=== PATIENT | female | born 1970 | race Caucasian/White ===

== ENCOUNTER 2017-10-05 21:00 | Inpatient (IN) ==
[2017-10-05] MEDS ORDERED: Morphine Inj 4 MG/ML Vial IV.PUSH ONE (21:27)
[2017-10-05] MEDS ORDERED: Sodium Chlor 0.9% Inj 500 ML IV.SIG ONE (21:28)
[2017-10-05] MEDS ORDERED: Pantoprazole Inj 40 MG Vial IV.PUSH ONE (21:29)
--- NOTE | 2017-10-05 21:36 | ED ---
HPI General Chief Complaint: Chest Pain Stated Complaint: chest pain Time Seen by Provider: 10/05/17 21:19 History of Present Illness HPI narrative: 47-year-old female presents to the emergency department by private transportation for complaint of severe epigastric pain radiating to her back since 12 noon. Patient states she has had some mild cold symptoms and had a prescription for steroid and doxycycline called in by her primary care provider and took her first dose this morning. Patient reports noting onset of pain after taking the medication. Patient states that she also has been flying frequently for her work over the past 1 month. Patient reports prior history of breast cancer 3 years ago but is not currently being managed for active breast cancer. Patient denies any upper extremity or lower extremity pain or swelling. Patient also notes pleuritic chest pain but does note shortness of breath. Patient denies fever or chills. Patient reports epigastric pain that is severe 10/10 in intensity and unremitting unable to identify exacerbating or alleviating factors. Patient's had nausea without vomiting. Patient denies flank pain. Patient denies referred neck jaw mid scapular back pain shoulder or arm pain. Patient denies dysuria frequency urgency or hematuria. Patient denies any recent protracted bed rest or surgeries. Pain is severe, constant and unremitting and she is unable to identify exacerbating or alleviating factors. Complete Quality Measures for STEMI Alert Patients Related Data On Oral Contraceptives: No Home Medications Medication Instructions Recorded Confirmed escitalopram oxalate [Lexapro] 10 mg PO DAILY 10/05/17 10/05/17 spironolactone 25 mg PO DAILY 10/05/17 10/05/17 Allergies Allergy/AdvReac Type Severity Reaction Status Date / Time codeine Allergy Hallucinati Verified 10/05/17 21:12 ons Sulfa (Sulfonamide Allergy Vomiting Verified 10/05/17 21:12 Antibiotics) Review of Systems Except as stated in HPI: all other systems reviewed are negative PMFSH History History Provided By: Patient Medical History Medical History Hx of hysterectomy (Acute) Breast cancer (Acute) Surgical History Surgical History History of mastectomy (Acute) Social History Social History Substance History: No History of Abuse Second Hand Smoke Exposure: No Smoking Status: Never smoker How Often Do You Have a Drink Containing Alcohol: Never Recent Travel in [place] within the Last 8 Weeks: No Recent Out of Country Travel within the Last 8 Weeks: No Exam Narrative Exam Narrative: GENERAL: Well-nourished, well-developed patient. In obvious discomfort and no respiratory distress SKIN: Focused skin assessment warm/dry. HEAD: Normocephalic. EYES: No scleral icterus. No injection or drainage. NECK: Supple, trachea midline. No JVD or lymphadenopathy. CARDIOVASCULAR: Regular rate and rhythm without murmurs, gallops, or rubs. RESPIRATORY: Breath sounds equal bilaterally. No accessory muscle use. GASTROINTESTINAL: Abdomen soft, reproducible epigastric tenderness without guarding or rebound, nondistended. MUSCULOSKELETAL: No cyanosis, or edema. BACK: Nontender without obvious deformity. No CVA tenderness. 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 Patient placed on cardiac exercise specialist with continuous pulse oximetry IV access obtained specimens collected and sent for resulting patient administered IV fluid bolus as well as pain medication and antiemetic. CT abdomen and pelvis along with CTA ordered Patient with symptom relief after pain medication and antiemetic EKG sinus rhythm no acute injury pattern change noted CBC is automated differential values grossly within normal limits except for left shift 80% neutrophils by automated differential, coagulation studies in normal range, metabolic panel grossly within normal limits Troponin I is less than 0.02, elevated however d-dimer is elevated 0.98 Urinalysis unremarkable with rare bacteria culture not indicated CT pulmonary angiogram is negative for PE however CT abdomen and pelvis is positive for inflammatory changes about the pancreas consistent with pancreatitis and lipase is resulted at 30,350. Patient will be admitted for acute pancreatitis Patient informed of lab results and is agreeable with admission; call placed to medicine service for admission Differential Diagnosis Differential Diagnosis: Pleurisy, PE, gastritis, peptic ulcer disease, pancreatitis, biliary colic, ACS, dissection; unlikely Boerhaave's or Joy- Seaman tear Medical Records none Lab Data Lab results reviewed: Yes I reviewed the patient's lab results. Result diagrams: 10/07/17 06:01 10/07/17 06:01 Lab Results 10/05/17 10/05/17 10/05/17 Range/Units 21:26 21:35 21:35 WBC 9.3 (4.0-11.0) th/mm3 RBC 4.90 (4.00-5.30) mil/mm3 Hgb 15.0 (11.6-15.3) gm/dL Hct 43.8 (35.0-46.0) % MCV 89.4 (80.0-100.0) fL MCH 30.6 (27.0-34.0) pg MCHC 34.2 (32.0-36.0) % RDW 12.7 (11.6-17.2) % Plt Count 208 (150-450) th/mm3 MPV 9.2 (7.0-11.0) fL Neut % (Auto) 88.2 H (16.0-70.0) % Lymph % (Auto) 6.1 L (9.0-44.0) % [place] % (Auto) 5.1 (0.0-8.0) % Eos % (Auto) 0.1 (0.0-4.0) % Baso % (Auto) 0.5 (0.0-2.0) % Neut # (Auto) 8.3 H (1.8-7.7) th/mm3 Lymph # (Auto) 0.6 L (1.0-4.8) th/mm3 [place] # (Auto) 0.5 (0.0-0.9) th/mm3 Eos # (Auto) 0.0 (0.0-0.4) th/mm3 Baso # (Auto) 0.0 (0.0-0.2) th/mm3 WBC Differential . Differential Comment Auto diff final PT 10.0 (9.8-11.6) sec INR 1.0 Ratio APTT 24.7 (24.3-30.1) sec D-Dimer Quant (PE/DVT) (0.00-0.50) mg/L FEU Sodium 138 (136-145) meq/L Potassium 3.9 (3.5-5.1) meq/L Chloride 106 (98-107) meq/L Carbon Dioxide 23.3 (21.0-32.0) meq/L Anion Gap 9 (5-15) meq/L BUN 11 (7-18) mg/dL Creatinine 0.90 (0.50-1.00) mg/dL Estimated GFR 67 L (>89) mL/min Random Glucose 175 H (74-106) mg/dL Calcium 9.4 (8.5-10.1) mg/dL Magnesium 2.4 (1.5-2.5) mg/dL Total Bilirubin 0.4 (0.2-1.0) mg/dL AST 19 (15-37) U/L ALT 18 (10-53) U/L Alkaline Phosphatase 68 (45-117) U/L Total Creatine Kinase 29 (26-192) U/L Troponin I Less than 0.02 L (0.02-0.05) ng/mL Total Protein 7.8 (6.4-8.2) g/dL Albumin 3.9 (3.4-5.0) g/dL Lipase (73-393) U/L Urine Color (Yellw/Straw) Urine Clarity (Clear) Urine pH (5.0-8.5) Ur Specific [place] (1.002-1.035) Urine Protein (Neg-Trace) mg/dL Urine Glucose (UA) (Negative) mg/dL Urine Ketones (Negative) mg/dL Urine Occult Blood (Negative) Urine Nitrate (Negative) Urine Bilirubin (Negative) Urine Urobilinogen (Less than 2) mg/dL Ur Leukocyte Esterase (Negative) Urine WBC (0-5) /hpf Ur Squamous Epith Cells (0-5) /hpf Urine Bacteria (None) /hpf 10/05/17 10/05/17 10/05/17 Range/Units 21:35 21:35 22:45 WBC (4.0-11.0) th/mm3 RBC (4.00-5.30) mil/mm3 Hgb (11.6-15.3) gm/dL Hct (35.0-46.0) % MCV (80.0-100.0) fL MCH (27.0-34.0) pg MCHC (32.0-36.0) % RDW (11.6-17.2) % Plt Count (150-450) th/mm3 MPV (7.0-11.0) fL Neut % (Auto) (16.0-70.0) % Lymph % (Auto) (9.0-44.0) % [place] % (Auto) (0.0-8.0) % Eos % (Auto) (0.0-4.0) % Baso % (Auto) (0.0-2.0) % Neut # (Auto) (1.8-7.7) th/mm3 Lymph # (Auto) (1.0-4.8) th/mm3 [place] # (Auto) (0.0-0.9) th/mm3 Eos # (Auto) (0.0-0.4) th/mm3 Baso # (Auto) (0.0-0.2) th/mm3 WBC Differential Differential Comment PT (9.8-11.6) sec INR Ratio APTT (24.3-30.1) sec D-Dimer Quant (PE/DVT) 0.98 H (0.00-0.50) mg/L FEU Sodium (136-145) meq/L Potassium (3.5-5.1) meq/L Chloride (98-107) meq/L Carbon Dioxide (21.0-32.0) meq/L Anion Gap (5-15) meq/L BUN (7-18) mg/dL Creatinine (0.50-1.00) mg/dL Estimated GFR (>89) mL/min Random Glucose (74-106) mg/dL Calcium (8.5-10.1) mg/dL Magnesium (1.5-2.5) mg/dL Total Bilirubin (0.2-1.0) mg/dL AST (15-37) U/L ALT (10-53) U/L Alkaline Phosphatase (45-117) U/L Total Creatine Kinase (26-192) U/L Troponin I (0.02-0.05) ng/mL Total Protein (6.4-8.2) g/dL Albumin (3.4-5.0) g/dL Lipase 87588 H (73-393) U/L Urine Color Straw (Yellw/Straw) Urine Clarity Clear (Clear) Urine pH 6.0 (5.0-8.5) Ur Specific [place] 1.005 (1.002-1.035) Urine Protein Negative (Neg-Trace) mg/dL Urine Glucose (UA) 150 H (Negative) mg/dL Urine Ketones Negative (Negative) mg/dL Urine Occult Blood Negative (Negative) Urine Nitrate Negative (Negative) Urine Bilirubin Negative (Negative) Urine Urobilinogen Less than 2 (Less than 2) mg/dL Ur Leukocyte Esterase Negative (Negative) Urine WBC Less than 1 (0-5) /hpf Ur Squamous Epith Cells 1 (0-5) /hpf Urine Bacteria Rare H (None) /hpf 10/06/17 10/06/17 10/07/17 Range/Units 09:18 14:46 06:01 WBC 7.7 (4.0-11.0) th/mm3 RBC 4.26 (4.00-5.30) mil/mm3 Hgb 13.1 (11.6-15.3) gm/dL Hct 38.2 (35.0-46.0) % MCV 89.6 (80.0-100.0) fL MCH 30.8 (27.0-34.0) pg MCHC 34.4 (32.0-36.0) % RDW 12.6 (11.6-17.2) % Plt Count 158 (150-450) th/mm3 MPV 9.0 (7.0-11.0) fL Neut % (Auto) 73.8 H (16.0-70.0) % Lymph % (Auto) 15.6 (9.0-44.0) % [place] % (Auto) 7.5 (0.0-8.0) % Eos % (Auto) 2.4 (0.0-4.0) % Baso % (Auto) 0.7 (0.0-2.0) % Neut # (Auto) 5.7 (1.8-7.7) th/mm3 Lymph # (Auto) 1.2 (1.0-4.8) th/mm3 [place] # (Auto) 0.6 (0.0-0.9) th/mm3 Eos # (Auto) 0.2 (0.0-0.4) th/mm3 Baso # (Auto) 0.1 (0.0-0.2) th/mm3 WBC Differential . Differential Comment Auto diff final PT (9.8-11.6) sec INR Ratio APTT (24.3-30.1) sec D-Dimer Quant (PE/DVT) (0.00-0.50) mg/L FEU Sodium (136-145) meq/L Potassium (3.5-5.1) meq/L Chloride (98-107) meq/L Carbon Dioxide (21.0-32.0) meq/L Anion Gap (5-15) meq/L BUN (7-18) mg/dL Creatinine (0.50-1.00) mg/dL Estimated GFR (>89) mL/min Random Glucose (74-106) mg/dL Calcium (8.5-10.1) mg/dL Magnesium (1.5-2.5) mg/dL Total Bilirubin (0.2-1.0) mg/dL AST (15-37) U/L ALT (10-53) U/L Alkaline Phosphatase (45-117) U/L Total Creatine Kinase (26-192) U/L Troponin I Less than 0.02 L Less than 0.02 L (0.02-0.05) ng/mL Total Protein (6.4-8.2) g/dL Albumin (3.4-5.0) g/dL Lipase (73-393) U/L Urine Color (Yellw/Straw) Urine Clarity (Clear) Urine pH (5.0-8.5) Ur Specific [place] (1.002-1.035) Urine Protein (Neg-Trace) mg/dL Urine Glucose (UA) (Negative) mg/dL Urine Ketones (Negative) mg/dL Urine Occult Blood (Negative) Urine Nitrate (Negative) Urine Bilirubin (Negative) Urine Urobilinogen (Less than 2) mg/dL Ur Leukocyte Esterase (Negative) Urine WBC (0-5) /hpf Ur Squamous Epith Cells (0-5) /hpf Urine Bacteria (None) /hpf 10/07/17 Range/Units 06:01 WBC (4.0-11.0) th/mm3 RBC (4.00-5.30) mil/mm3 Hgb (11.6-15.3) gm/dL Hct (35.0-46.0) % MCV (80.0-100.0) fL MCH (27.0-34.0) pg MCHC (32.0-36.0) % RDW (11.6-17.2) % Plt Count (150-450) th/mm3 MPV (7.0-11.0) fL Neut % (Auto) (16.0-70.0) % Lymph % (Auto) (9.0-44.0) % [place] % (Auto) (0.0-8.0) % Eos % (Auto) (0.0-4.0) % Baso % (Auto) (0.0-2.0) % Neut # (Auto) (1.8-7.7) th/mm3 Lymph # (Auto) (1.0-4.8) th/mm3 [place] # (Auto) (0.0-0.9) th/mm3 Eos # (Auto) (0.0-0.4) th/mm3 Baso # (Auto) (0.0-0.2) th/mm3 WBC Differential Differential Comment PT (9.8-11.6) sec INR Ratio APTT (24.3-30.1) sec D-Dimer Quant (PE/DVT) (0.00-0.50) mg/L FEU Sodium 141 (136-145) meq/L Potassium 3.8 (3.5-5.1) meq/L Chloride 110 H (98-107) meq/L Carbon Dioxide 23.2 (21.0-32.0) meq/L Anion Gap 8 (5-15) meq/L BUN 8 (7-18) mg/dL Creatinine 0.55 (0.50-1.00) mg/dL Estimated GFR Greater than 89 (>89) mL/min Random Glucose 67 L D (74-106) mg/dL Calcium 8.3 L D (8.5-10.1) mg/dL Magnesium (1.5-2.5) mg/dL Total Bilirubin 0.6 (0.2-1.0) mg/dL AST 11 L (15-37) U/L ALT 15 (10-53) U/L Alkaline Phosphatase 58 (45-117) U/L Total Creatine Kinase (26-192) U/L Troponin I (0.02-0.05) ng/mL Total Protein 6.3 L D (6.4-8.2) g/dL Albumin 3.2 L D (3.4-5.0) g/dL Lipase 695 H (73-393) U/L Urine Color (Yellw/Straw) Urine Clarity (Clear) Urine pH (5.0-8.5) Ur Specific [place] (1.002-1.035) Urine Protein (Neg-Trace) mg/dL Urine Glucose (UA) (Negative) mg/dL Urine Ketones (Negative) mg/dL Urine Occult Blood (Negative) Urine Nitrate (Negative) Urine Bilirubin (Negative) Urine Urobilinogen (Less than 2) mg/dL Ur Leukocyte Esterase (Negative) Urine WBC (0-5) /hpf Ur Squamous Epith Cells (0-5) /hpf Urine Bacteria (None) /hpf Imaging Data Radiologist's impression: Chest X-Ray 10/05/17 21:26 CONCLUSION: Negative for acute process Abdomen/Pelvis CT 10/05/17 22:38 CONCLUSION: 1. Heterogeneous ill-defined enhancement of the pancreatic head with regional peripancreatic fluid extending inferiorly consistent with pancreatitis in the appropriate clinical setting. Pancreatic body and tail demonstrate uniform enhancement without focal drainable fluid collections. 2. Nonspecific nondistended fluid-filled loops of ileum in the lower abdomen. 3. Moderate stool in the cecum. Chest CTA 10/05/17 22:38 CONCLUSION: 1. No CT evidence for pulmonary artery embolism as questioned. 2. Minimal atelectasis at the lung bases. ECG Data EKG Prior to Arrival: No Attestation: I personally reviewed and interpreted this ECG as follows: Prior ECG tracings: not available for review Interpretation: EKG: Normal sinus rhythm rate [address] elevation or injury pattern change noted baseline Discharge Plan Discharge Disposition Patient Disposition: 30 Still Patient Discharge Condition Condition: Stable Discharge Details Diagnosis: Pancreatitis Physicians Team ED Provider: Joanie Sanabria Primary Care Provider: Mehdi Winkler Attending Provider: Herb Herman Discharge Interventions Interventions: ED Discharge Assessment Last Done: 10/06/17 04:02 Vital Signs Last Done: 10/06/17 02:50 Status ED Status: Left Department Discharge Information Discharge Date/Time: 10/06/17 03:50
--- NOTE | 2017-10-05 21:52 | XR ---
EXAM DATE: 10/05/2017 9:45 PM EDT AGE/SEX: 47 years / Female INDICATIONS: Midsternal chest pain today. CLINICAL DATA: This is the patient's initial encounter. Patient reports that signs and symptoms have been present for 1 day and indicates a pain score of 8/10. MEDICAL/SURGICAL HISTORY: Carcinoma, breast. None. COMPARISON: No prior exams available for comparison. FINDINGS: A single AP view of the chest demonstrates the lungs to be symmetrically aerated without evidence of mass, infiltrate or effusion. The cardiomediastinal contours are unremarkable. Osseous structures a re intact. CONCLUSION: Negative for acute process Electronically signed by: Huang Andujar MD 10/05/2017 9:51 PM EDT
[2017-10-05 22:18] LABS: Albumin 3.9 g/dL (3.4-5.0); Anion Gap 9 meq/L (5-15); Aspartate Aminotransferase 19 U/L (15-37); Blood Urea Nitrogen 11 mg/dL (7-18); Calcium 9.4 mg/dL (8.5-10.1); Carbon Dioxide 23.3 meq/L (21.0-32.0); Chloride 106 meq/L (98-107); Glomerular Filtration Rate 67 mL/min (>89); Glucose,Random 175 mg/dL (74-106); Magnesium 2.4 mg/dL (1.5-2.5); Potassium 3.9 meq/L (3.5-5.1); Sodium 138 meq/L (136-145)
[2017-10-05 22:23] LABS: Alanine Aminotransferase 18 U/L (10-53); Alkaline Phosphatase 68 U/L (45-117); Total Protein 7.8 g/dL (6.4-8.2)
[2017-10-05 22:24] LABS: Baso % (Auto) 0.5 % (0.0-2.0); Eos % (Auto) 0.1 % (0.0-4.0); Hematocrit 43.8 % (35.0-46.0); Lymph # (Auto) 0.6 th/mm3 (1.0-4.8); Lymph % (Auto) 6.1 % (9.0-44.0); Mean Corpuscular HGB Conc 34.2 % (32.0-36.0); Mean Corpuscular Hemoglobin 30.6 pg (27.0-34.0); Mean Corpuscular Volume 89.4 fL (80.0-100.0); Mean Platelet Volume 9.2 fL (7.0-11.0); Mono # (Auto) 0.5 th/mm3 (0.0-0.9); Mono % (Auto) 5.1 % (0.0-8.0); Neut # (Auto) 8.3 th/mm3 (1.8-7.7); Neut % (Auto) 88.2 % (16.0-70.0); Platelet Count 208 th/mm3 (150-450); Red Cell Distribution Width 12.7 % (11.6-17.2); White Blood Count 9.3 th/mm3 (4.0-11.0)
[2017-10-05 22:29] LABS: Creatine Kinase 29 U/L (26-192)
[2017-10-05 22:59] LABS: Activated Partial Thrombo Time 24.7 sec (24.3-30.1)
[2017-10-05 23:20] LABS: Bacteria,Urine Rare /hpf; Bilirubin,Urine Negative (Negative); Clarity,Urine Clear (Clear); Color,Urine Straw (Yellw/Straw); Glucose,Urine (UA) 150 mg/dL (Negative); Leukocyte Esterase,Urine Negative (Negative); Nitrite,Urine Negative (Negative); Specific Gravity,Urine 1.005 (1.002-1.035); Squamous Epithelial Cell,Urine 1 /hpf (0-5)
--- NOTE | 2017-10-06 00:16 | CT ---
EXAM DATE: 10/05/2017 11:50 PM EDT AGE/SEX: 47 years / Female INDICATIONS: Shortness of breath with epigastric pain. CLINICAL DATA: This is the patient's initial encounter. Patient reports that signs and symptoms have been present for 1 day and indicates a pain score of 10/10. MEDICAL/SURGICAL HISTORY: Carcinoma, breast. Mastectomy, bilateral. Hysterectomy. RADIATION DOSE: 9.46 CTDI (mGy) ; Combined studies COMPARISON: [facility], CHEST 1V SINGLE AP, 10/05/2017. . TECHNIQUE: Volumetric scanning was performed using a multi-row detector CT scanner during bolus infu sammi of 95 ml Omnipaque 350 (iohexol) nonionic water-soluble contrast as a cumulative dose for multi ple exams. The data was post processed with a variety of visualization algorithms including full volu me maximum intensity projection and sliding thin slab reformation. Using automated exposure control and adjustment of the mA and/or kV according to patient size, radiation dose was kept as low as reaso nably achievable to obtain optimal diagnostic quality images. DICOM format image data is available e lectronically for review and comparison. FINDINGS: Pulmonary Arteries: No filling defects are seen in the pulmonary arteries through the segmental vess els. The main pulmonary artery is normal in diameter. Lung: Minimal groundglass opacities at the lung bases with focal scarring in the extreme right lung base. Pleura: No effusion, significant pleural thickening or pneumothorax. Mediastinum: Heart is unremarkable without pericardial effusion.No evidence of mediastinal or hilar adenopathy. Osseous Structures: No abnormal focal lytic or blastic bony lesions. Bilateral breast implants in yuridia ce. Other: Visulaized upper abdomen is unremarkable. CONCLUSION: 1. No CT evidence for pulmonary artery embolism as questioned. 2. Minimal atelectasis at the lung bases. Electronically signed by: Jorge A Rojo MD 10/06/2017 12:14 AM EDT
--- NOTE | 2017-10-06 00:47 | CT ---
EXAM DATE: 10/05/2017 11:50 PM EDT AGE/SEX: 47 years / Female INDICATIONS: Epigastric pain. CLINICAL DATA: This is the patient's initial encounter. Patient reports that signs and symptoms have been present for 1 day and indicates a pain score of 10/10. MEDICAL/SURGICAL HISTORY: Carcinoma, breast. Mastectomy, bilateral. Hysterectomy. ORAL CONTRAST: No oral contrast ingested. RADIATION DOSE: 5.78 CTDI (mGy) COMPARISON: No prior exams available for comparison. TECHNIQUE: Multiple contiguous axial images were obtained through the abdomen and pelvis following b olus infusion of 95 ml Omnipaque 350 (iohexol) nonionic water-soluble contrast as a cumulative dose for multiple exams. No oral contrast ingested. Using automated exposure control and adjustment of t mA and/or kV according to patient size, radiation dose was kept as low as reasonably achievable to obtain optimal diagnostic quality images. DICOM format image data is available electronically for r eview and comparison. FINDINGS: LOWER LUNGS: Minimal groundglass opacities in the right lung base. LIVER: The liver has a homogeneous density without space-occupying lesion. There is no dilation of t biliary tree. No calcified gallstones. SPLEEN: Homogeneous density without enlargement. PANCREAS: Ill-defined pancreatic head with regional peripancreatic fluid extending inferiorly. Body of the pancreas and pancreatic tail demonstrate uniform enhancement without ductal dilatation. KIDNEYS: Kidneys demonstrate symmetrical enhancement and are symmetrical in size without evidence fo r radiopaque renal calculi or hydronephrosis. ADRENAL GLANDS: Unremarkable. AORTA: Mary-aneurysmal. BOWEL/MESENTERY: Moderate amount of stool in the cecum. Several loops of nondistended fluid-filled i leum in the lower abdomen. No free air or pneumatosis. ABDOMINAL WALL: Intact. RETROPERITONEUM: No evidence of adenopathy in the retrocrural, para-aortic, or deep pelvic regions. BLADDER: Decompressed. REPRODUCTIVE: No abnormal masses or calcifications seen. BONY STRUCTURES: Unremarkable. CONCLUSION: 1. Heterogeneous ill-defined enhancement of the pancreatic head with regional peripancreatic fluid e xtending inferiorly consistent with pancreatitis in the appropriate clinical setting. Pancreatic body and tail demonstrate uniform enhancement without focal drainable fluid collections. 2. Nonspecific nondistended fluid-filled loops of ileum in the lower abdomen. 3. Moderate stool in the cecum. Electronically signed by: Jorge A Rojo MD 10/06/2017 12:46 AM EDT
[2017-10-06] MEDS ORDERED: Temazepam 15 MG Capsule PO PRN (03:14)
[2017-10-06] MEDS ORDERED: Bisacodyl 10 MG Supp RECTAL PRN (03:14)
[2017-10-06] MEDS ORDERED: Acetaminophen 325 MG Tablet PO PRN (03:14)
--- NOTE | 2017-10-06 04:08 | P.HPIM ---
History of Present Illness Primary Care Physician: Mehdi Winkler MD History of Present Illness: This is a 47-year-old female with a PMH of Breast CA S/p Mastectomy who presented to the ER w/ complaints of chest pain x1 day. States chest pain is substernal, severe, 10/10, non-radiating, associated w/ SOB. No h/o similar symptoms. Has been traveling for the last several weeks and concerned for "PE" . Reports no previous h/o PE, however states she has h/o multiple miscarriages and was placed on Lovenox following childbirth years ago. Denies fever, chills or sick contacts. On arrival, BP 125/80, HR 78, O2 sat 99% on RA, Afebrile. CBC essentially unremarkable. INR 1.0. D-dimer 0.98. Chemistry unremarkable except for GFR 67. Troponin negative. Lipase 30,350. UA negative for UTI. CXR with no acute findings. CTA Chest negative for PE. CT Abdomen/Pelvis with ill-defined enhancement of pancreatic head consistent with pancreatitis, no focal drainable fluid collections. S/p Morphine and Protonix in ER w/ significant improvement. - Diagnosis (1) Pancreatitis (2) Chest pain (3) Dehydration Inpatient Certification: I certify that the inpatient services were ordered in accordance with Medicare regulations governing the order. This includes certification that hospital inpatient services are reasonable and necessary and in the case of services not specified as inpatient-only under 42 CFR 419.22(n), that they are appropriately provided as inpatient services in accordance to with the 2-midnight benchmark under 43 CFR 412.3(e) Estimated Total Length of Stay (Days): 2 Plans for Post Hospital Care: Not yet determined Review of Systems All other systems reviewed negative except as stated [facility] - History History Provided By: Patient - Medical History Medical History: Medical History (Last Updated 10/05/17 @ 22:12 by Sosa Roach RN) Hx of hysterectomy (Acute) Breast cancer (Acute) - Surgical History Surgical History: Surgical History (Last Updated 10/05/17 @ 22:12 by Sosa Roach RN) History of mastectomy - Tobacco History Second Hand Smoke Exposure: No Smoking Status: Never smoker - Alcohol History How Often Do You Have a Drink Containing Alcohol: Never - Substance Use History Substance History: No History of Abuse - Travel History Recent Travel in the [place] Within the Last 8 Weeks: No Recent Travel Out of the Country Within the Last 8 Weeks: No - Immunization History Tetanus Immunization: <5 Years Hx Influenza Vaccine This Season: No Medications and Allergies Active Medications: Active Medications Acetaminophen (Tylenol) 650 mg PO Q4H PRN PRN Reason: Temp > 100.4 Al Hydroxide/Mg Hydroxide (Milk Of Magnesia Liq) 30 ml PO Q12H PRN PRN Reason: Mild Constipation Bisacodyl (Dulcolax Supp) 10 mg RECTAL DAILY PRN PRN Reason: SEVERE CONSITIPATION Escitalopram Oxalate (Lexapro) 10 mg PO DAILY HEATH Sodium Chloride (Ns Inj) 1,000 mls @ 100 mls/hr IV.CONT .Q10H HEATH Lactulose (Lactulose Liq) 30 ml PO DAILY PRN PRN Reason: SEVERE CONSITIPATION Ondansetron HCl (Zofran Odt) 4 mg PO Q6H PRN PRN Reason: NAUSEA OR VOMITING Pantoprazole Sodium (Protonix Inj) 40 mg IV.PUSH Q12H HEATH Prochlorperazine Edisylate (Compazine Inj) 10 mg IV.PUSH Q6H PRN PRN Reason: NAUSEA/VOMITING Senna/Docusate Sodium (Archana-Colace) 1 tab PO BID HEATH Sennosides (Senokot) 17.2 mg PO Q12H PRN PRN Reason: Moderate Constipation Temazepam (Restoril) 15 mg PO HS PRN PRN Reason: INSOMNIA Allergies Allergy/AdvReac Type Severity Reaction Status Date / Time codeine Allergy Hallucinati Verified 10/05/17 21:12 ons Sulfa (Sulfonamide Allergy Vomiting Verified 10/05/17 21:12 Antibiotics) Home Medications Medication Instructions Recorded Confirmed Type escitalopram oxalate [Lexapro] 10 mg PO DAILY 10/05/17 10/05/17 History spironolactone 25 mg PO DAILY 10/05/17 10/05/17 History Exam Vital signs: Vital Signs 10/05/17 21:10 10/05/17 21:12 10/05/17 22:50 Temperature 97.4 F L Pulse Rate 78 76 60 Respiratory Rate 28 H 16 16 Blood Pressure 125/80 119/63 120/60 Pulse Oximetry 99 98 98 10/06/17 00:00 10/06/17 02:50 Temperature Pulse Rate 55 L 67 Respiratory Rate 16 16 Blood Pressure 109/55 L 109/51 L Pulse Oximetry 99 97 Intake & Output 10/05/17 10/05/17 10/06/17 06:59 18:59 06:59 Weight 58.967 kg Narrative: PE: GENERAL: Extremely pleasant young white female in no acute distress. Daughter at bedside. HEENT: PERRLA, EOMI. No scleral icterus or conjunctival pallor. No lid lag or facial droop. CARDIOVASCULAR: Regular rate and rhythm. No obvious murmurs to auscultation. No chest tenderness to palpation. RESPIRATORY: No obvious rhonchi or wheezing. Clear to auscultation. Breath sounds equal bilaterally. GASTROINTESTINAL: Abdomen soft, epigastric tenderness palpation, nondistended. BS normal. MUSCULOSKELETAL: Extremities without clubbing, cyanosis, or edema. No obvious deformities. NEUROLOGICAL: Awake, alert and oriented x4. No focal neurologic deficits. Moving both upper and lower extremities spontaneously. Results - Labs CBC & Chem 7: 10/05/17 21:35 10/05/17 21:35 Labs: Short CBC 10/05/17 Range/Units 21:35 WBC 9.3 (4.0-11.0) th/mm3 Hgb 15.0 (11.6-15.3) gm/dL Hct 43.8 (35.0-46.0) % Plt Count 208 (150-450) th/mm3 BMP 10/05/17 21:35 Sodium 138 Potassium 3.9 Chloride 106 Carbon Dioxide 23.3 BUN 11 Creatinine 0.90 Calcium 9.4 Cardiac Enzymes 10/05/17 Range/Units 21:35 Total Creatine Kinase 29 (26-192) U/L Troponin I Less than 0.02 L (0.02-0.05) ng/mL Liver Function 10/05/17 Range/Units 21:35 Total Bilirubin 0.4 (0.2-1.0) mg/dL AST 19 (15-37) U/L ALT 18 (10-53) U/L Alkaline Phosphatase 68 (45-117) U/L Albumin 3.9 (3.4-5.0) g/dL Urine 10/05/17 Range/Units 22:45 Urine Color Straw (Yellw/Straw) Urine Clarity Clear (Clear) Urine pH 6.0 (5.0-8.5) Ur Specific [place] 1.005 (1.002-1.035) Urine Protein Negative (Neg-Trace) mg/dL Urine Glucose (UA) 150 H (Negative) mg/dL - Imaging Impressions Chest X-Ray 10/05/17 21:26 CONCLUSION: Negative for acute process Abdomen/Pelvis CT 10/05/17 22:38 CONCLUSION: 1. Heterogeneous ill-defined enhancement of the pancreatic head with regional peripancreatic fluid extending inferiorly consistent with pancreatitis in the appropriate clinical setting. Pancreatic body and tail demonstrate uniform enhancement without focal drainable fluid collections. 2. Nonspecific nondistended fluid-filled loops of ileum in the lower abdomen. 3. Moderate stool in the cecum. Chest CTA 10/05/17 22:38 CONCLUSION: 1. No CT evidence for pulmonary artery embolism as questioned. 2. Minimal atelectasis at the lung bases. Caprini VTE Risk Assessment Caprini VTE Risk Assessment: No/Low Risk (score <= 1) Caprini Risk Assessment Model: Point Value = 1 Point Value = 2 Point Value = 3 Point Value = 5 Age 41-60 Minor surgery BMI > 25 kg/m2 Swollen legs Varicose veins or History of unexplained or recurrent spontaneous Oral contraceptives or hormone replacement Sepsis (< 1 month) Serious lung disease, including pneumonia (< 1 month) Abnormal pulmonary function Acute myocardial infarction Congestive heart failure (< 1 month) History of inflammatory bowel disease Medical patient at bed rest Age 61-74 Arthroscopic surgery Major open surgery (> 45 min) Laparoscopic surgery (> 45 min) Malignancy Confined to bed (> 72 hours) Immobilizing plaster cast Central venous access Age >= 75 History of VTE Family history of VTE Factor V Leiden Prothrombin [id number] Lupus anticoagulant Anticardiolipin antibodies Elevated serum homocysteine Heparin-induced thrombocytopenia Other congenital or acquired thrombophilia Stroke (< 1 month) Elective arthroplasty Hip, pelvis, or leg fracture Acute spinal cord injury (< 1 month) Prophylaxis Regimen: Total Risk Factor Score Risk Level Prophylaxis Regimen 0-1 Low Early ambulation 2 Moderate Order ONE of the following: *Sequential Compression Device (SCD) *Heparin 5000 units SQ BID 3-4 Higher Order ONE of the following medications: *Heparin 5000 units SQ TID *Enoxaparin/Lovenox 40 mg SQ daily (WT < 150 kg, CrCl > 30 mL/min) *Enoxaparin/Lovenox 30 mg SQ daily (WT < 150 kg, CrCl > 10-29 mL/min) *Enoxaparin/Lovenox 30 mg SQ BID (WT < 150 kg, CrCl > 30 mL/min) AND/OR *Sequential Compression Device (SCD) 5 or more Highest Order ONE of the following medications: *Heparin 5000 units SQ TID (Preferred with Epidurals) *Enoxaparin/Lovenox 40 mg SQ daily (WT < 150 kg, CrCl > 30 mL/min) *Enoxaparin/Lovenox 30 mg SQ daily (WT < 150 kg, CrCl > 10-29 mL/min) *Enoxaparin/Lovenox 30 mg SQ BID (WT < 150 kg, CrCl > 30 mL/min) AND *Sequential Compression Device (SCD) Assessment and Plan - Assessment (1) Pancreatitis Code(s): K85.90 - Acute pancreatitis without necrosis or infection, unspecified Status: Acute (2) Chest pain Code(s): R07.9 - Chest pain, unspecified Status: Acute (3) Dehydration Code(s): E86.0 - Dehydration Status: Acute - Plan A/P: 1. Pancreatitis: Lipase 30,350, CT Abd/Pelvis w/ evidence of pancreatitis, no drainable fluid collection, images reviewed. No h/o Pancreatitis, LFTs normal. NPO, IVF, analgesics/antiemetics as needed, repeat Lipase. Protonix IV. 2. Chest Pain: Likely secondary to above, no cardiac risk factors, initial trop negative, will place on telemetry, check serial cardiac enzymes for trend. 3. Dehydration: GFR 67, U/a negative for UTI, IVF for hydration, monitor I/O, repeat labs in am. 4. DVT Prophylaxis: SCD/Teds 5. Social work for d/c planning as needed 6. Case discussed w/ ER physician at length, labs/records/imaging reviewed by me.
[2017-10-06] MEDS: Escitalopram 10 MG Tablet PO SCH (08:36)
[2017-10-06] MEDS: Pantoprazole Inj 40 MG Vial IV.PUSH SCH ×2 (08:36→21:23)
[2017-10-06] MEDS: Senna/Docusate Sodium 8.6/50 MG Tablet PO SCH ×3 (08:43→21:24)
--- NOTE | 2017-10-06 09:59 | P.PN ---
Subjective Interval history: f/u pancreatitis. Improving pain 5/10 wants to eat. Denies alcohol use. She has been on several courses of antibiotics for sinusitis recently to doxycycline and prednisone which she had before. Physical Exam Vital signs: Vital Signs 10/05/17 21:10 10/05/17 21:12 10/05/17 22:50 Temperature 97.4 F L Pulse Rate 78 76 60 Respiratory Rate 28 H 16 16 Blood Pressure 125/80 119/63 120/60 Pulse Oximetry 99 98 98 10/06/17 00:00 10/06/17 02:50 10/06/17 04:00 Temperature 98.2 F Pulse Rate 55 L 67 68 Respiratory Rate 16 16 17 Blood Pressure 109/55 L 109/51 L 126/69 Pulse Oximetry 99 97 98 10/06/17 07:42 10/06/17 08:00 Temperature 98.5 F Pulse Rate 65 Respiratory Rate 20 16 Blood Pressure 125/66 Pulse Oximetry 98 Intake & Output 10/05/17 10/06/17 10/06/17 18:59 06:59 18:59 Weight 59 kg Other: Date of Last Bowel Movement 10/05/17 10/05/17 Weight On Admission 58.967 kg Narrative: GENERAL: Extremely pleasant young white female in no acute distress. Daughter at bedside. HEENT: PERRLA, EOMI. No scleral icterus or conjunctival pallor. No lid lag or facial droop. CARDIOVASCULAR: Regular rate and rhythm. No obvious murmurs to auscultation. No chest tenderness to palpation. RESPIRATORY: No obvious rhonchi or wheezing. Clear to auscultation. Breath sounds equal bilaterally. GASTROINTESTINAL: Abdomen soft, epigastric tenderness palpation, nondistended. BS normal. MUSCULOSKELETAL: Extremities without clubbing, cyanosis, or edema. No obvious deformities. NEUROLOGICAL: Awake, alert and oriented x4. No focal neurologic deficits. Moving both upper and lower extremities spontaneously. Results - Labs CBC & Chem 7: 10/05/17 21:35 10/05/17 21:35 Laboratory Results - last 24 hr 10/05/17 10/05/17 10/05/17 21:26 21:35 21:35 WBC 9.3 RBC 4.90 Hgb 15.0 Hct 43.8 MCV 89.4 MCH 30.6 MCHC 34.2 RDW 12.7 Plt Count 208 MPV 9.2 Neut % (Auto) 88.2 H Lymph % (Auto) 6.1 L [place] % (Auto) 5.1 Eos % (Auto) 0.1 Baso % (Auto) 0.5 Neut # (Auto) 8.3 H Lymph # (Auto) 0.6 L [place] # (Auto) 0.5 Eos # (Auto) 0.0 Baso # (Auto) 0.0 WBC Differential . Differential Comment Auto diff final PT 10.0 INR 1.0 APTT 24.7 D-Dimer Quant (PE/DVT) Sodium 138 Potassium 3.9 Chloride 106 Carbon Dioxide 23.3 Anion Gap 9 BUN 11 Creatinine 0.90 Estimated GFR 67 L Random Glucose 175 H Calcium 9.4 Magnesium 2.4 Total Bilirubin 0.4 AST 19 ALT 18 Alkaline Phosphatase 68 Total Creatine Kinase 29 Troponin I Less than 0.02 L Total Protein 7.8 Albumin 3.9 Lipase Urine Color Urine Clarity Urine pH Ur Specific [place] Urine Protein Urine Glucose (UA) Urine Ketones Urine Occult Blood Urine Nitrate Urine Bilirubin Urine Urobilinogen Ur Leukocyte Esterase Urine WBC Ur Squamous Epith Cells Urine Bacteria 10/05/17 10/05/17 10/05/17 21:35 21:35 22:45 WBC RBC Hgb Hct MCV MCH MCHC RDW Plt Count MPV Neut % (Auto) Lymph % (Auto) [place] % (Auto) Eos % (Auto) Baso % (Auto) Neut # (Auto) Lymph # (Auto) [place] # (Auto) Eos # (Auto) Baso # (Auto) WBC Differential Differential Comment PT INR APTT D-Dimer Quant (PE/DVT) 0.98 H Sodium Potassium Chloride Carbon Dioxide Anion Gap BUN Creatinine Estimated GFR Random Glucose Calcium Magnesium Total Bilirubin AST ALT Alkaline Phosphatase Total Creatine Kinase Troponin I Total Protein Albumin Lipase 71165 H Urine Color Straw Urine Clarity Clear Urine pH 6.0 Ur Specific [place] 1.005 Urine Protein Negative Urine Glucose (UA) 150 H Urine Ketones Negative Urine Occult Blood Negative Urine Nitrate Negative Urine Bilirubin Negative Urine Urobilinogen Less than 2 Ur Leukocyte Esterase Negative Urine WBC Less than 1 Ur Squamous Epith Cells 1 Urine Bacteria Rare H - Imaging Impressions Chest X-Ray 10/05/17 21:26 CONCLUSION: Negative for acute process Abdomen/Pelvis CT 10/05/17 22:38 CONCLUSION: 1. Heterogeneous ill-defined enhancement of the pancreatic head with regional peripancreatic fluid extending inferiorly consistent with pancreatitis in the appropriate clinical setting. Pancreatic body and tail demonstrate uniform enhancement without focal drainable fluid collections. 2. Nonspecific nondistended fluid-filled loops of ileum in the lower abdomen. 3. Moderate stool in the cecum. Chest CTA 10/05/17 22:38 CONCLUSION: 1. No CT evidence for pulmonary artery embolism as questioned. 2. Minimal atelectasis at the lung bases. Assessment and Plan - Assessment (1) Pancreatitis Code(s): K85.90 - Acute pancreatitis without necrosis or infection, unspecified Status: Acute (2) Chest pain Code(s): R07.9 - Chest pain, unspecified Status: Acute (3) Dehydration Code(s): E86.0 - Dehydration Status: Acute - Plan 1. Pancreatitis: Lipase 30,350, CT Abd/Pelvis w/ evidence of pancreatitis, no drainable fluid collection, images reviewed. No h/o Pancreatitis, LFTs normal. May be med related (prednisone and Lexapro) improving pain. Trial of clear liquid diet continue IVF, analgesics/antiemetics as needed, repeat Lipase. Protonix IV. 2. Chest Pain: Likely secondary to above, no cardiac risk factors, will place on telemetry, check serial cardiac enzymes for trend. She is ruling out for MT 3. Dehydration: GFR 67, U/a negative for UTI, IVF for hydration, monitor I/O, repeat labs in am. 4. DVT Prophylaxis: SCD/Teds Discharge Planning: home in 2-3 days
--- NOTE | 2017-10-06 14:15 | ECG ---
Date Performed: 10/05/2017 Time Performed: 21:33:42 PTAGE: 47 years EKG: Sinus rhythm MINIMAL ST DEPRESSION BORDERLINE ECG NO PREVIOUS TRACING DOCTOR: Efrain Cisneros Interpretating Date/Time 10/06/2017 14:14:22
[2017-10-06] MEDS: Sod Chloride 0.9% Inj 1,000 ML IV.CONT SCH (21:23)
[2017-10-07 07:05] LABS: Baso # (Auto) 0.1 th/mm3 (0.0-0.2); Baso % (Auto) 0.7 % (0.0-2.0); Eos # (Auto) 0.2 th/mm3 (0.0-0.4); Eos % (Auto) 2.4 % (0.0-4.0); Hematocrit 38.2 % (35.0-46.0); Hemoglobin 13.1 gm/dL (11.6-15.3); Lymph # (Auto) 1.2 th/mm3 (1.0-4.8); Lymph % (Auto) 15.6 % (9.0-44.0); Mean Corpuscular HGB Conc 34.4 % (32.0-36.0); Mean Corpuscular Hemoglobin 30.8 pg (27.0-34.0); Mean Corpuscular Volume 89.6 fL (80.0-100.0); Mono # (Auto) 0.6 th/mm3 (0.0-0.9); Mono % (Auto) 7.5 % (0.0-8.0); Neut # (Auto) 5.7 th/mm3 (1.8-7.7); Neut % (Auto) 73.8 % (16.0-70.0); Platelet Count 158 th/mm3 (150-450); Red Blood Count 4.26 mil/mm3 (4.00-5.30); Red Cell Distribution Width 12.6 % (11.6-17.2); White Blood Count 7.7 th/mm3 (4.0-11.0)
[2017-10-07 07:41] LABS: Alanine Aminotransferase 15 U/L (10-53); Albumin 3.2 g/dL (3.4-5.0); Alkaline Phosphatase 58 U/L (45-117); Anion Gap 8 meq/L (5-15); Aspartate Aminotransferase 11 U/L (15-37); Blood Urea Nitrogen 8 mg/dL (7-18); Calcium 8.3 mg/dL (8.5-10.1); Carbon Dioxide 23.2 meq/L (21.0-32.0); Chloride 110 meq/L (98-107); Glomerular Filtration Rate Greater Than 89 mL/min (>89); Glucose,Random 67 mg/dL (74-106); Lipase 695 U/L (73-393); Potassium 3.8 meq/L (3.5-5.1); Sodium 141 meq/L (136-145); Total Protein 6.3 g/dL (6.4-8.2)
[2017-10-07] MEDS: Sod Chloride 0.9% Inj 1,000 ML IV.CONT SCH (07:50)
[2017-10-07] MEDS ORDERED: Acetaminophen 325 MG Tablet PO PRN (08:42)
[2017-10-07] MEDS ORDERED: Naloxone Inj 0.4 MG/ML Vial IV.PUSH PRN (08:42)
[2017-10-07] MEDS: Escitalopram 10 MG Tablet PO SCH (08:52)
[2017-10-07] MEDS ORDERED: Ketorolac Inj 30 MG/ML (IVP) Vial IV.PUSH PRN (11:00)
[2017-10-07] MEDS ORDERED: Ibuprofen 400 MG Tablet PO PRN (11:00)
--- NOTE | 2017-10-07 13:27 | P.DS ---
Date of admission: 10/06/17 03:03 Primary care physician: Mehdi Winkler MD Brief History from admission: This is a 47-year-old female with a PMH of Breast CA S/p Mastectomy who presented to the ER w/ complaints of chest pain x1 day. States chest pain is substernal, severe, 10/10, non-radiating, associated w/ SOB. No h/o similar symptoms. Has been traveling for the last several weeks and concerned for "PE" . Reports no previous h/o PE, however states she has h/o multiple miscarriages and was placed on Lovenox following childbirth years ago. Denies fever, chills or sick contacts. On arrival, BP 125/80, HR 78, O2 sat 99% on RA, Afebrile. CBC essentially unremarkable. INR 1.0. D-dimer 0.98. Chemistry unremarkable except for GFR 67. Troponin negative. Lipase 30,350. UA negative for UTI. CXR with no acute findings. CTA Chest negative for PE. CT Abdomen/Pelvis with ill-defined enhancement of pancreatic head consistent with pancreatitis, no focal drainable fluid collections. S/p Morphine and Protonix in ER w/ significant improvement. DS: Diagnosis - Discharge Diagnosis (1) Pancreatitis Status: Acute (2) Chest pain Status: Acute (3) Dehydration Status: Acute DS: Summary Hospital Course: 1. Pancreatitis: Lipase 30,350, CT Abd/Pelvis w/ evidence of pancreatitis, no drainable fluid collection, images reviewed. GB intact dw rad. No h/o Pancreatitis, LFTs normal. May be med related (prednisone and Lexapro) improved pain rpt lipase almost WNL. Advance diet as tolerated dc IVF. Ct analgesics/antiemetics as needed 2. Chest Pain: Likely secondary to above, no cardiac risk factors, will place on telemetry, ruled out for [place] 3. Dehydration: GFR 67, U/a negative for UTI, IVF for hydration, monitor I/O, improved 4. DVT Prophylaxis: SCD/Teds - Time Spent with Patient Total time spent providing and/or coordinating discharge services: - Quality: VTE Deep Vein Thrombosis/Pulmonary Embolism Present on Admission: No Exam Vital signs: Vital Signs 10/06/17 16:00 10/06/17 20:00 10/06/17 21:25 Temperature 98.7 F 98.6 F Pulse Rate 65 77 Respiratory Rate 16 17 17 Blood Pressure 129/75 126/66 Pulse Oximetry 97 97 10/07/17 00:00 10/07/17 04:00 10/07/17 08:00 Temperature 99.4 F 98.3 F 98.1 F Pulse Rate 91 H 82 77 Respiratory Rate 17 18 16 Blood Pressure 121/75 125/70 120/67 Pulse Oximetry 95 97 96 Intake & Output 10/06/17 10/07/17 10/07/17 18:59 06:59 18:59 Intake Total 540 / 540 1000 / 1000 Balance 540 / 540 1000 / 1000 Weight 58.9 kg Intake: IV 1000 / 1000 NS Inj 1,000 ML @ 100 mls/hr IV 1000 / 1000 .CONT .Q10H HEATH Rx#:[id number] Oral 540 / 540 Other: # Voids 3 3 Date of Last Bowel Movement 10/06/17 10/06/17 # Bowel Movements 2 Narrative: GENERAL: Extremely pleasant young white female in no acute distress. HEENT: PERRLA, EOMI. No scleral icterus or conjunctival pallor. No lid lag or facial droop. CARDIOVASCULAR: Regular rate and rhythm. No obvious murmurs to auscultation. No chest tenderness to palpation. RESPIRATORY: No obvious rhonchi or wheezing. Clear to auscultation. Breath sounds equal bilaterally. GASTROINTESTINAL: Abdomen soft, epigastric tenderness palpation, nondistended. BS normal. MUSCULOSKELETAL: Extremities without clubbing, cyanosis, or edema. No obvious deformities. NEUROLOGICAL: Awake, alert and oriented x4. No focal neurologic deficits. Moving both upper and lower extremities spontaneously. Results Procedures completed during hospitalization: none Labs on day of discharge: Labs from last 24 hours 10/07/17 10/07/17 10/06/17 06:01 06:01 14:46 WBC 7.7 RBC 4.26 Hgb 13.1 Hct 38.2 MCV 89.6 MCH 30.8 MCHC 34.4 RDW 12.6 Plt Count 158 MPV 9.0 Neut % (Auto) 73.8 H Lymph % (Auto) 15.6 [place] % (Auto) 7.5 Eos % (Auto) 2.4 Baso % (Auto) 0.7 Neut # (Auto) 5.7 Lymph # (Auto) 1.2 [place] # (Auto) 0.6 Eos # (Auto) 0.2 Baso # (Auto) 0.1 WBC Differential . Differential Comment Auto diff final Sodium 141 Potassium 3.8 Chloride 110 H Carbon Dioxide 23.2 Anion Gap 8 BUN 8 Creatinine 0.55 Estimated GFR Greater than 89 Random Glucose 67 L D Calcium 8.3 L D Total Bilirubin 0.6 AST 11 L ALT 15 Alkaline Phosphatase 58 Troponin I Less than 0.02 L Total Protein 6.3 L D Albumin 3.2 L D Lipase 695 H - Impressions ITS Impressions Chest X-Ray 10/05/17 21:26 CONCLUSION: Negative for acute process Abdomen/Pelvis CT 10/05/17 22:38 CONCLUSION: 1. Heterogeneous ill-defined enhancement of the pancreatic head with regional peripancreatic fluid extending inferiorly consistent with pancreatitis in the appropriate clinical setting. Pancreatic body and tail demonstrate uniform enhancement without focal drainable fluid collections. 2. Nonspecific nondistended fluid-filled loops of ileum in the lower abdomen. 3. Moderate stool in the cecum. Chest CTA 10/05/17 22:38 CONCLUSION: 1. No CT evidence for pulmonary artery embolism as questioned. 2. Minimal atelectasis at the lung bases. Discharge Plan - Discharge Disposition Patient Disposition: 01 Discharge Home - Discharge Condition Condition: Stable - Discharge Order Discharge Orders: Discharge Order (Routine); Ordered 10/07/17 Ordered By: Herb Herman - Physicians Team Primary Care Provider: Mehdi Winkler Attending Provider: Herb Herman
== END 2017-10-07 14:00 | disposition home or self-care (01) ==
LOC: NEPC 21:00 → NEDA 10-06 03:03 → N06 10-06 03:50
PROVIDERS: ADMIT Internal Medicine; ATTEND Internal Medicine
DX: Z88.5 Allergy status to narcotic agent; Z90.10 Acquired absence of unspecified breast and nipple; R07.2 Precordial pain; Z88.2 Allergy status to sulfonamides; K85.90 Acute pancreatitis without necrosis or infection, unspecified; Z85.3 Personal history of malignant neoplasm of breast; E86.0 Dehydration